=== PATIENT | female | born 1995 | race Caucasian/White ===

== ENCOUNTER 2019-06-18 11:52 | Outpatient (CLI) | payer MEDICAID ==
[2019-06-18 17:40] LABS: BASOPHILS % (AUTO) 0.4 %; EOSINOPHILS # (AUTO) 0.2 10^3/uL (0.0-0.7); EOSINOPHILS % (AUTO) 2.8 %; HGB - HEMOGLOBIN 14.5 g/dL (12.0-16.0); LYMPHOCYTES # (AUTO) 1.7 10^3/uL (1.5-3.5); LYMPHOCYTES % (AUTO) 22.5 %; MEAN CORPUSCULAR HEMOGLOBIN 30.6 pg (27.0-31.0); MEAN CORPUSCULAR HGB CONC 32.9 g/dL (32.0-36.0); MEAN PLATELET VOLUME 12.1 fL (7.9-10.8); MONOCYTES # (AUTO) 0.5 10^3/uL (0.0-1.0); MONOCYTES % (AUTO) 6.3 %; NEUTROPHILS # (AUTO) 5.1 10^3/uL (1.5-6.6); NEUTROPHILS % (AUTO) 67.7 %; PLT - PLATELET COUNT 224 10^3/uL (130-450); RED BLOOD COUNT 4.74 10^6/uL (4.20-5.40); RED CELL DISTRIBUTION WIDTH 11.9 % (12.0-15.0); WHITE BLOOD COUNT 7.6 x10^3/uL (4.8-10.8)
[2019-06-18 18:02] LABS: ALBUMIN 4.5 g/dL (3.2-5.5); ALBUMIN/GLOBULIN RATIO 1.4 (1.0-2.2); BILIRUBIN,TOTAL 0.8 mg/dL (0.2-1.0); CALCIUM 9.3 mg/dL (8.5-10.3); CREATININE 0.9 mg/dL (0.4-1.0); TOTAL PROTEIN 7.7 g/dL (6.7-8.2)
[2019-06-18 18:13] LABS: FREE T3 3.26 pg/mL (2.5-3.9); FREE T4 (FREE THYROXINE) 0.77 ng/dL (0.58-1.64)
[2019-06-18 18:18] LABS: FERRITIN 25.3 ng/mL (11.0-306.8)
== END 2019-06-18 23:59 | disposition home or self-care (01) ==
LOC: LAB.WCP 11:52
PROVIDERS: ATTEND Nurse Practitioner
DX: K51.90 Ulcerative colitis, unspecified, without complications (principal); R23.8 Other skin changes; F41.8 Other specified anxiety disorders; Z13.228 Encounter for screening for other metabolic disorders; Z79.899 Other long term (current) drug therapy; Z86.2 Personal history of diseases of the blood and blood-forming organs and certain disorders involving the immune mechanism
CPT/HCPCS: 36415; 80053; 82728; 83540; 84439; 84443; 84466; 84481; 85025

== ENCOUNTER 2019-06-20 08:29 | Outpatient (CLI) | payer MEDICAID ==
--- NOTE | 2019-06-20 20:35 | XRAY Report ---
Reason: SCOLIOSIS Procedure Date: 06/20/2019 Accession Number: [id number] / [id number] Procedure: WCP - Spine Scoliosis Study 2-3V CPT Code: Final Report FULL RESULT: EXAM: SCOLIOSIS RADIOGRAPHY EXAM DATE: 06/20/2019 08:29 AM. CLINICAL HISTORY: SCOLIOSIS. COMPARISONS: None. TECHNIQUE: Standing view(s) of the thoracic and lumbar spine. FINDINGS: Alignment: Lumbar scoliosis to the left centered at L2-L3 disk space. Bones: Normal. No fracture, bone lesion, or congenital anomaly evident. Risser 5. Disks: Normal. Disk heights are maintained. Soft Tissues: Normal. The visualized lungs and cardiomediastinal silhouette are normal. The bowel gas pattern is normal. IMPRESSION: Mild lumbar scoliosis to the left centered at L2-L3 disk space. No degenerative changes. No spina bifida. No transitional lumbar vertebra. No malalignment. No acute displaced fracture. RADIA
== END 2019-06-20 23:59 | disposition home or self-care (01) ==
LOC: DI.WCP 08:29
PROVIDERS: ATTEND Nurse Practitioner
DX: M41.9 Scoliosis, unspecified (principal)
CPT/HCPCS: 72082

== ENCOUNTER 2019-06-20 09:07 | Outpatient (CLI) | payer MEDICAID | END 2019-06-20 23:59 | disposition home or self-care (01) | LOC: LAB.R 09:07 | PROVIDERS: ATTEND Nurse Practitioner | DX: R30.0 Dysuria (principal) | CPT/HCPCS: 87086 ==

== ENCOUNTER 2019-07-09 12:33 | Outpatient (CLI) | payer MEDICAID ==
--- NOTE | 2019-07-09 17:07 | Ultrasound Report ---
Reason: ENDOMETRIOSIS Procedure Date: 07/09/2019 Accession Number: [id number] / [id number] Procedure: US - Pelvic w/Transvaginal CPT Code: Final Report FULL RESULT: PROCEDURE: Pelvic w/Transvaginal INDICATIONS: ENDOMETRIOSIS TECHNIQUE: Real-time scanning was performed of the pelvic organs, with image documentation. Additional endovaginal scanning was necessary due to incomplete visualization of the adnexal and endometrial structures by transabdominal scanning. COMPARISON: None. FINDINGS: Transabdominal scanning: No pathologic free abdominal or pelvic fluid. Endovaginal scanning: Uterus: Uterus is normal in size at 7.2 x 4.6 x 4.6 cm. The endometrium measures 0.97 in combined thickness. There is a midline anterior subserosal fibroid measuring up to 3.0 x 2.9 x 2.1 cm. Ovaries: The right ovary measures 4.3 x 2.6 x 2.7 cm and the left ovary measures 2.7 x 1.9 x 1.4 cm. There is a small thin-walled cyst in the right ovary measuring up to 1.6 cm likely representing a follicular cyst. IMPRESSION: 1. Anterior subserosal fibroid demonstrated in the uterus. 2. No adnexal masses identified. Reviewed by: Jeffrey Lira MD on 07/09/2019 5:05 PM PDT Approved by: Jeffrey Lira MD on 07/09/2019 5:05 PM PDT Station ID: [id number]
== END 2019-07-09 12:34 | disposition home or self-care (01) ==
LOC: DI 12:33
PROVIDERS: ATTEND Nurse Practitioner
DX: D25.2 Subserosal leiomyoma of uterus (principal)
CPT/HCPCS: 76830; 76856

== ENCOUNTER 2019-09-29 18:12 | Emergency (ER) | payer MEDICAID ==
--- NOTE | 2019-09-29 18:19 | ED Physician Documentation ---
PD HPI UPPER EXT INJURY - Stated complaint Stated Complaint: LT THUMB LAC - History obtained from History obtained from: Patient - History of Present Illness Location: Left (She was cutting asparagus and nicked the tip of her left thumb at home. This was just prior to arrival. Tetanus is up-to-date.) PD ED PE NORMAL - Vitals Vital signs reviewed: Yes - General General: Alert and oriented X 3, No acute distress, Other (wearing v inadequate face shield and counselled that it was not appropriate protection for covid) - Extremities Extremities: Other (4mm shallow lac on pulp of L thumb.) - Neuro Neuro: Alert and oriented X 3, Normal speech - Psych Psych: Normal mood, Normal affect Results - Vitals Vitals: Vital Signs - 24 hr 09/29/19 18:17 Temperature 37.1 C Heart Rate 77 Respiratory 18 Rate Blood Pressure 115/87 H O2 Saturation 99 Oxygen O2 Source Room air Procedures - Laceration (location) L thumb Length in cm: 0.5 Wound type: Linear, Superficial Wound Preparation: Irrigated copiously NS Skin layer closure: Dermabond Other: Tetanus UTD Complexity: Simple Departure - Departure Disposition: 01 Home, Self Care Clinical Impression: Laceration of left thumb Qualifiers: Encounter type: initial encounter Damage to nail status: without damage Foreign body presence: without foreign body Qualified Code(s): S61.012A - Laceration without foreign body of left thumb without damage to nail, initial encounter Condition: Good Record reviewed to determine appropriate education?: Yes Instructions: ED Laceration Ext Skin Glue Comments: If the glue starts to chip off early you can supplement with a little superglue. For basic wound care simply soap and water and then applying a new clean dry Band-Aid over it. Return for signs of infection including but not limited to redness, swelling, drainage, increased pain.
[2019-09-29 18:20] VITALS: BP 115/87
== END 2019-09-29 18:30 | disposition home or self-care (01) ==
LOC: ED 18:12
DX: S61.012A Laceration without foreign body of left thumb without damage to nail, initial encounter (principal); W26.0XXA Contact with knife, initial encounter; Y93.G1 Activity, food preparation and clean up; Y92.009 Unspecified place in unspecified non-institutional (private) residence as the place of occurrence of the external cause
CPT/HCPCS: 12001; 99281

== ENCOUNTER 2020-02-10 08:46 | Outpatient (CLI) | payer MEDICAID ==
[2020-02-10 09:32] LABS: HGB - HEMOGLOBIN 15.1 g/dL (12.0-16.0); MEAN CORPUSCULAR HGB CONC 33.3 g/dL (32.0-36.0); MEAN CORPUSCULAR VOLUME 89.9 fL (81.0-99.0); MEAN PLATELET VOLUME 11.4 fL (7.9-10.8); RED BLOOD COUNT 5.04 10^6/uL (4.20-5.40); RED CELL DISTRIBUTION WIDTH 11.8 % (12.0-15.0); WHITE BLOOD COUNT 5.7 x10^3/uL (4.8-10.8)
[2020-02-10 09:47] LABS: ALBUMIN 4.6 g/dL (3.2-5.5); ALBUMIN/GLOBULIN RATIO 1.6 (1.0-2.2); BILIRUBIN,TOTAL 1.1 mg/dL (0.2-1.0); CREATININE 0.8 mg/dL (0.4-1.0); TOTAL PROTEIN 7.4 g/dL (6.7-8.2)
[2020-02-10 10:10] LABS: PROLACTIN 23.59 ng/mL
[2020-02-10 10:32] LABS: FOLLICLE STIMULATING HORMONE 6.28 mIU/mL
[2020-02-10 13:22] LABS: HEMOGLOBIN A1c% 5.1 % (4.27-6.07)
[2020-02-11 05:52] LABS: ESTRADIOL 144 pg/mL; PROGESTERONE <0.5 ng/mL
== END 2020-02-10 08:47 | disposition home or self-care (01) ==
LOC: LAB 08:46
PROVIDERS: ATTEND Obstetrics & Gynecology
DX: Z13.21 Encounter for screening for nutritional disorder (principal); R53.83 Other fatigue; Z83.3 Family history of diabetes mellitus; E28.2 Polycystic ovarian syndrome
CPT/HCPCS: 36415; 80053; 82306; 82670; 82951; 83001; 83036; 84144; 84146; 84403; 84443; 85027

== ENCOUNTER 2020-02-17 18:49 | Outpatient (CLI) | payer MEDICAID ==
--- NOTE | 2020-02-18 19:51 | Ultrasound Report ---
PROCEDURE: Pelvic Limited or F/U INDICATIONS: VULVAR LESION TECHNIQUE: Real-time transabdominal scanning was performed of the pelvic region and vulva, with image documentat ion. COMPARISON: None. FINDINGS: There is a reducible, fat-containing left inguinal region hernia with the neck measuring ap proximately 5 mm in diameter. With Valsalva, this fat-containing hernia measures approximately 1.8 x 0.8 cm in size. No abnormal fluid collections or hyperemia. At the palpable area of patient concern in the region of the left pole the, there is a nonspecific av ascular isoechoic structure measuring 2.1 x 0.5 x 0.9 cm. There is no adjacent hyperemia. No abnormal fluid collection. Overlying skin appears unremarkable. IMPRESSION: 1. There is a spontaneously reducible fat-containing hernia in the left inguinal region which may rep resent an inguinal versus femoral hernia. Consider further characterization with CT. 2. Corresponding with the palpable area of concern in the region of the left vulva, there is a nonspe cific 2.1 x 0.5 x 0.9 cm isoechoic focus without associated vascularity or other suspicious features. Recommend continued clinical surveillance with repeat imaging as indicated. Reviewed by: Tino Alatorre MD on 02/18/2020 6:50 PM RUST Approved by: Tino Alatorre MD on 02/18/2020 6:50 PM RUST Station ID: [id number]
== END 2020-02-17 18:50 | disposition home or self-care (01) ==
LOC: DI 18:49
PROVIDERS: ATTEND Obstetrics & Gynecology
DX: N90.89 Other specified noninflammatory disorders of vulva and perineum (principal); K40.90 Unilateral inguinal hernia, without obstruction or gangrene, not specified as recurrent; R53.83 Other fatigue

== ENCOUNTER 2020-05-08 09:48 | Outpatient (CLI) | payer MEDICAID ==
[2020-05-08 10:40] LABS: THYROID STIMULATING HORMONE 1.62 uIU/mL (0.34-5.60)
[2020-05-08 10:41] LABS: FREE T3 3.15 pg/mL (2.5-3.9)
[2020-05-08 10:42] LABS: FREE T4 (FREE THYROXINE) 0.96 ng/dL (0.58-1.64)
[2020-05-13 03:28] LABS: THYROID PEROXIDASE ANTIBODIES 1 IU/mL (<9)
== END 2020-05-08 09:49 | disposition home or self-care (01) ==
LOC: LAB 09:48
PROVIDERS: ATTEND Obstetrics & Gynecology
DX: Z01.812 Encounter for preprocedural laboratory examination (principal); R53.83 Other fatigue; L65.9 Nonscarring hair loss, unspecified; K21.9 Gastro-esophageal reflux disease without esophagitis; K51.90 Ulcerative colitis, unspecified, without complications; Z83.49 Family history of other endocrine, nutritional and metabolic diseases; Z20.822 Contact with and (suspected) exposure to COVID-19
CPT/HCPCS: 36415; 84439; 84443; 84481; 86376; 86800

== ENCOUNTER 2020-05-08 16:54 | Outpatient (CLI) | payer MEDICAID | END 2020-05-08 16:55 | disposition home or self-care (01) | LOC: COV 16:54 | PROVIDERS: ATTEND Surgery | DX: Z01.812 Encounter for preprocedural laboratory examination (principal); K21.9 Gastro-esophageal reflux disease without esophagitis; K51.90 Ulcerative colitis, unspecified, without complications; Z20.822 Contact with and (suspected) exposure to COVID-19 ==

== ENCOUNTER 2020-05-12 08:05 | Day surgery (SDC) | payer MEDICAID ==
[2020-05-12] MEDS ORDERED: LACTATED RINGERS 1,000 ML IV ONE ×2 (08:46→10:24)
[2020-05-12 09:01] LABS: HCG UR QUAL NEGATIVE
--- NOTE | 2020-05-12 09:18 | ANESTHESIA ---
Pre-Anesthesia VS, & Labs - Diagnosis GERD, Ulcerative colitis - Procedure Colonoscopy and EGD Vital Signs: Temp Pulse Resp BP Pulse Ox 36.6 C 88 18 120/94 H 100 05/12/20 08:43 05/12/20 08:43 05/12/20 08:43 05/12/20 08:43 05/12/20 08:43 Height: 5 ft 7 in Weight (kg): 72 kg Body Mass Index: 24.8 BMI Classification: Healthy weight - NPO >8 hours - Is Patient ?: No Home Medications and Allergies Home Medications: Ambulatory Orders Citalopram [CeleXA] 20 mg PO DAILY 05/11/20 Dextroamphetamine/Amphetamine [Adderall 20 mg Tablet] 40 mg ORAL DAILY 05/11/20 clonazePAM [Clonazepam] 0.5 mg ORAL DAILY PRN 05/11/20 Citalopram [CeleXA] 20 mg PO DAILY 05/11/20 Dextroamphetamine/Amphetamine [Adderall 20 mg Tablet] 40 mg ORAL DAILY 05/11/20 clonazePAM [Clonazepam] 0.5 mg ORAL DAILY PRN 05/11/20 Allergies/Adverse Reactions: Allergies Allergy/AdvReac Type Severity Reaction Status Date / Time No Known Drug Allergies Allergy Verified 05/11/20 14:01 Anes History & Medical History - Anesthetic History Anesthesia Complications: reports: Slow wake-up - Medical History Cardiovascular: reports: None Pulmonary: reports: None Gastrointestinal: reports: GERD Urinary: reports: None Neuro: reports: Migraines Musculoskeletal: reports: None Endocrine/Autoimmune: reports: None Blood Disorders: reports: None Skin: reports: None Smoking Status: Never smoker Psychosocial: reports: Anxiety, Other (PTSD) - Surgical History General: reports: Appendectomy, Bowel surgery, Colonoscopy, EGD Gynecologic: reports: Other Exam General: Alert, Oriented x3, Cooperative, No acute distress Dental: WNL Mouth Openin Fingerbreadth Neck Mobility: Normal Mallampati classification: II Thyromental Distance: greater than 6 cm Mental/Cognitive Status: Alert/Oriented X3, Normal for patient Plan Anesthesia Type: MAC Consent for Procedure(s) Verified and Reviewed: Yes Code Status: Attempt Resuscitation ASA classification: 2-Mild systemic disease Is this case an emergency?: No
[2020-05-12] MEDS ORDERED: fentaNYL 100 MCG/2 ML VIAL ONE (09:22)
[2020-05-12] MEDS ORDERED: PROPOFOL 500 MG/50 ML 500 MG/50 ML VIAL ONE (09:22)
[2020-05-12] MEDS ORDERED: MIDAZOLAM 2 MG/2 ML VIAL ONE (09:22)
[2020-05-12] MEDS ORDERED: LIDOCAINE-MPF 2% 5 ML VIAL ONE (09:26)
[2020-05-12] MEDS ORDERED: ONDANSETRON 4 MG/2 ML VIAL ONE (10:25)
[2020-05-12] MEDS ORDERED: ONDANSETRON 4 MG/2 ML VIAL IVP PRN (10:26)
--- NOTE | 2020-05-12 10:35 | ANESTHESIA POST OP EVALUATION ---
Anesthesia Post Eval - Post Anesthesia Eval Vitals: Last Vital Signs Temp 36.2 C L 05/12/20 10:33 Pulse 59 L 05/12/20 10:33 Resp 18 05/12/20 10:33 BP 99/76 05/12/20 10:33 Pulse Ox 100 05/12/20 10:33 CV Function Including HR & BP: Stable Pain Control: Satisfactory Nausea & Vomiting: Negative Mental Status: Baseline Respiratory Status: Airway Patent Hydration Status: Satisfactory Anesthesia Complications: None
[2020-05-12] MEDS ORDERED: DEXAMETHASONE 4 MG/ML VIAL IVP ONE (10:51)
[2020-05-12] MEDS ORDERED: DEXAMETHASONE 4 MG/ML VIAL ONE (10:54)
[2020-05-12 11:10] VITALS: BP 100/71
== END 2020-05-12 08:06 | disposition home or self-care (01) ==
LOC: SDS 08:05
PROVIDERS: ATTEND Surgery
PROC: 0DB28ZX Excision of Middle Esophagus, Via Natural or Artificial Opening Endoscopic, Diagnostic (ICD-10-PCS; 2020-05-12)
PROC: 0DB48ZX Excision of Esophagogastric Junction, Via Natural or Artificial Opening Endoscopic, Diagnostic (ICD-10-PCS; 2020-05-12)
PROC: 0DBM8ZX Excision of Descending Colon, Via Natural or Artificial Opening Endoscopic, Diagnostic (ICD-10-PCS; 2020-05-12)
PROC: 0DBL8ZX Excision of Transverse Colon, Via Natural or Artificial Opening Endoscopic, Diagnostic (ICD-10-PCS; 2020-05-12)
PROC: 0DBP8ZX Excision of Rectum, Via Natural or Artificial Opening Endoscopic, Diagnostic (ICD-10-PCS; 2020-05-12)
PROC: 0DBF8ZX Excision of Right Large Intestine, Via Natural or Artificial Opening Endoscopic, Diagnostic (ICD-10-PCS; 2020-05-12)
PROC: 0DBC8ZX Excision of Ileocecal Valve, Via Natural or Artificial Opening Endoscopic, Diagnostic (ICD-10-PCS; 2020-05-12)
PROC: 0DB98ZX Excision of Duodenum, Via Natural or Artificial Opening Endoscopic, Diagnostic (ICD-10-PCS; principal; 2020-05-12 09:15)
PROC: 0DB78ZX Excision of Stomach, Pylorus, Via Natural or Artificial Opening Endoscopic, Diagnostic (ICD-10-PCS; 2020-05-12 09:15)
DX: K51.90 Ulcerative colitis, unspecified, without complications (principal); K21.9 Gastro-esophageal reflux disease without esophagitis; R19.4 Change in bowel habit; K40.90 Unilateral inguinal hernia, without obstruction or gangrene, not specified as recurrent; K30 Functional dyspepsia; K29.60 Other gastritis without bleeding; K64.8 Other hemorrhoids; K64.4 Residual hemorrhoidal skin tags; F43.10 Post-traumatic stress disorder, unspecified
CPT/HCPCS: 43239; 45380; 81025; J7120; 88305

== ENCOUNTER 2020-06-08 07:18 | Outpatient (CLI) | payer MEDICAID ==
[2020-06-08] MEDS ORDERED: IOPAMIDOL-300 100 ML VIAL ONE (07:23)
[2020-06-08] MEDS ORDERED: IOPAMIDOL-300 50 ML VIAL ONE (07:23)
[2020-06-08] MEDS ORDERED: IOPAMIDOL-300 100 ML VIAL IVP ONE (08:38)
[2020-06-08] MEDS ORDERED: IOPAMIDOL-300 50 ML VIAL PO ONE (08:39)
--- NOTE | 2020-06-08 12:12 | CT Report ---
PROCEDURE: Abdomen/Pelvis W INDICATIONS: LT INGUINAL HERNIA CONTRAST: IV CONTRAST: Isovue 300 ml: 100 PO CONTRAST: Isovue 300 ml50 TECHNIQUE: After the administration of contrast, 5 mm thick sections acquired from the diaphragms to the sym physis. 5 mm thick coronal and sagittal reformats were acquired. For radiation dose reduction, the following was used: automated exposure control, adjustment of mA and/or kV according to patient size . COMPARISON: Pelvic ultrasound 02/17/2020 FINDINGS: Image quality: Excellent. ABDOMEN: Lung bases: Lung bases are clear. Heart size is normal. Solid organs: Liver and spleen are normal in size and enhancement. Gallbladder appears normal Bili moshe system is non dilated. Pancreas enhances normally. No adrenal nodules. Kidneys demonstrate nor mal size and enhancement, without hydronephrosis. Peritoneum and bowel: Bowel loops demonstrate normal wall thickness and caliber. No free fluid or a ir. Nodes and vessels: No retroperitoneal or mesenteric adenopathy by size criteria. Aorta and inferior vena cava are normal in size. Miscellaneous: No ventral hernias. PELVIS: Genitourinary: Bladder wall thickness is normal. There is a 1.8 cm right ovarian cyst. Miscellaneous: No inguinal hernias or adenopathy. A normal or abnormal appendix could not be locate d at the right lower quadrant, but there is no secondary CT evidence of acute appendicitis. No inguin al hernia is found. Bones: No suspicious bony lesions. No vertebral body compression fractures. IMPRESSION: Normal examination, source of current symptomatology is not found. Reviewed by: Mason Nunez MD on 06/08/2020 12:11 PM PDT Approved by: Mason Nunez MD on 06/08/2020 12:11 PM PDT Station ID: [id number]
== END 2020-06-08 07:19 | disposition home or self-care (01) ==
LOC: DI 07:18
PROVIDERS: ATTEND Surgery
DX: K40.90 Unilateral inguinal hernia, without obstruction or gangrene, not specified as recurrent (principal)
CPT/HCPCS: 74177; Q9967

== ENCOUNTER 2021-10-25 02:37 | Emergency (ER) | payer OTHER ==
[2021-10-25] MEDS ORDERED: HYDROmorphone 1 MG/ML CARPUJECT ONE (03:34)
[2021-10-25] MEDS ORDERED: ONDANSETRON 4 MG/2 ML VIAL ONE (03:34)
[2021-10-25] MEDS ORDERED: KETOROLAC 15 MG/ML VIAL ONE (03:35)
--- NOTE | 2021-10-25 03:49 | ED Physician Documentation ---
PD HPI ABD PAIN - Stated complaint Stated Complaint: BACK PX, ADB PX, NAUSEA - History obtained from History obtained from: Patient - History of Present Illness Timing - onset: How many hours ago (few) Timing - duration: Hours (few) Timing - details: Abrupt onset, Still present Quality: Cramping, Aching, Pain Location: LLQ Radiation: Left flank (initially left flank then to left abd, associated with nausea.) Improved by: No: Laying still Worsened by: No: Moving, Breathing Associated symptoms: Nausea, Vomiting. No: Fever, Diarrhea, Dysuria, Loss of appetite, Vaginal bleeding Similar symptoms before: Has not had sx before Recently seen: Not recently seen Review of Systems Constitutional: denies: Fever, Chills Nose: denies: Rhinorrhea / runny nose, Congestion Throat: denies: Sore throat Respiratory: denies: Cough : reports: LMP (1 week ago), Irregular menses. denies: Dysuria, Frequency, Discharge Musculoskeletal: denies: Extremity pain Neurologic: denies: Near syncope PD PAST MEDICAL HISTORY - Past Medical History Cardiovascular: None Respiratory: None Neuro: Migraines GI: GERD - Present Medications Home Medications: Ambulatory Orders Medication Instructions Recorded Confirmed Dextroamphetamine/Amphetamine 40 mg ORAL DAILY 05/11/20 10/25/21 [Adderall 20 mg Tablet] - Allergies Allergies/Adverse Reactions: Allergies Allergy/AdvReac Type Severity Reaction Status Date / Time No Known Drug Allergies Allergy Verified 10/25/21 03:52 - Social History Smoking Status: Never smoker PD ED PE NORMAL - Vitals Vital signs reviewed: Yes - General General: Alert and oriented X 3, Well developed/nourished, Other (appears very uncomfrotable due to flank/abd pain; tearful.) - Neck Neck: Supple, no meningeal sign, No adenopathy - Cardiac Cardiac: RRR, No murmur - Respiratory Respiratory: Clear bilaterally - Abdomen Abdomen: Normal bowel sounds, Soft, Non distended, Other (tender left mid abd and some left CVA tenderness to percussion. ) - Female Female : Deferred - Rectal Rectal: Deferred - Derm Derm: Normal color, Warm and dry - Extremities Extremities: Normal ROM s pain, No edema, No calf tenderness / cord - Neuro Neuro: Alert and oriented X 3, No motor deficit, Normal speech Results - Vitals Vitals: Oxygen O2 Source Room air - Labs Labs: Laboratory Tests 10/25/21 10/25/21 10/25/21 03:30 03:30 03:30 WBC 8.4 RBC 4.30 Hgb 12.8 Hct 37.6 MCV 87.4 MCH 29.8 MCHC 34.0 RDW 11.9 L Plt Count 221 MPV 10.8 Neut # (Auto) 4.2 Lymph # (Auto) 3.0 Republic # (Auto) 0.7 Eos # (Auto) 0.4 Baso # (Auto) 0.1 Absolute Nucleated RBC 0.00 Nucleated RBC % 0.0 Sodium 137 Potassium 3.8 Chloride 101 Carbon Dioxide 28 Anion Gap 8.0 BUN 12 Creatinine 0.9 Estimated GFR (MDRD) 75 L Glucose 99 Calcium 8.7 Total Bilirubin 0.3 AST 16 ALT 14 Alkaline Phosphatase 18 L Total Protein 6.4 L Albumin 3.9 Globulin 2.5 Albumin/Globulin Ratio 1.6 Lipase 34 Urine Color YELLOW Urine Clarity CLEAR Urine pH 6.0 Ur Specific [place] 1.010 Urine Protein NEGATIVE Urine Glucose (UA) NEGATIVE Urine Ketones NEGATIVE Urine Occult Blood NEGATIVE Urine Nitrite NEGATIVE Urine Bilirubin NEGATIVE Urine Urobilinogen 0.2 (NORMAL) Ur Leukocyte Esterase NEGATIVE Ur Microscopic Review NOT INDICATED Urine Culture Comments NOT INDICATED Urine HCG, Qual 10/25/21 03:30 WBC RBC Hgb Hct MCV MCH MCHC RDW Plt Count MPV Neut # (Auto) Lymph # (Auto) Republic # (Auto) Eos # (Auto) Baso # (Auto) Absolute Nucleated RBC Nucleated RBC % Sodium Potassium Chloride Carbon Dioxide Anion Gap BUN Creatinine Estimated GFR (MDRD) Glucose Calcium Total Bilirubin AST ALT Alkaline Phosphatase Total Protein Albumin Globulin Albumin/Globulin Ratio Lipase Urine Color Urine Clarity Urine pH Ur Specific [place] Urine Protein Urine Glucose (UA) Urine Ketones Urine Occult Blood Urine Nitrite Urine Bilirubin Urine Urobilinogen Ur Leukocyte Esterase Ur Microscopic Review Urine Culture Comments Urine HCG, Qual NEGATIVE - Rads (name of study) abd/pelvic CT Radiology: Prelim report reviewed (no kidney stones, no abnormalities. Small free ffluid in cul-de-sac. ), See rad report PD MEDICAL DECISION MAKING - ED course Complexity details: reviewed results (no clear answer for the pain. Small free fluid in cul-de-sac could represent physiological or perhaps a small ruptured cyst, might account for abrupt pain back/abd. Not conclusive. ), re-evaluated patient (improved pain with IV fluids/meds. Declines further pain meds at this time. ), considered differential, d/w patient ED course: unclear the exact cause of the pain, but no more serious cause identified. Seems safe to treat pain with meds and give time for resolution or evidencing more symptoms. Departure - Departure Disposition: 01 Home, Self Care Clinical Impression: Left sided abdominal pain Condition: Stable Record reviewed to determine appropriate education?: Yes Instructions: ED Abdominal Pain Female Non-Specific Abdominal Pain Comments: Unclear the cause of your pain. The CT scan and urine test and blood test did not show a specific cause for the pain. In particular no kidney stones, bowel obstruction, localized infection. There was some small amount of free fluid in the lower abdomen that could be physiologic or related to her recent. Or can commonly come from a small ruptured cyst. The fluid in itself will absorb and not be an issue. Otherwise causes that would not be evident on the testing could be musculoskeletal pains or intestinal irritations or spasms. At this point I would anticipate improvement with some basic anti-inflammatory such as ibuprofen or naproxen along with adding Tylenol if needed for pains. We did send a small bottle of few pain pills to use every 4-6 hours if needed for worse pain. Follow-up with your primary care if not improved over the next 2 to 3 days and return sooner if worsening symptoms. Discharge Date/Time: 10/25/21 07:10
[2021-10-25 03:57] LABS: BASOPHILS # (AUTO) 0.1 10^3/uL (0.0-0.1); BASOPHILS % (AUTO) 0.7 %; BILIRUBIN,URINE NEGATIVE (NEGATIVE); EOSINOPHILS # (AUTO) 0.4 10^3/uL (0.0-0.7); EOSINOPHILS % (AUTO) 4.8 %; GLUCOSE, URINE (UA) NEGATIVE (NEGATIVE); HCT - HEMATOCRIT 37.6 % (37.0-47.0); HGB - HEMOGLOBIN 12.8 g/dL (12.0-16.0); KETONES,URINE (UA) NEGATIVE (NEGATIVE); LEUKOCYTE ESTERASE, URINE NEGATIVE (NEGATIVE); LYMPHOCYTES % (AUTO) 35.4 %; MEAN CORPUSCULAR HEMOGLOBIN 29.8 pg (27.0-31.0); MEAN CORPUSCULAR VOLUME 87.4 fL (81.0-99.0); MEAN PLATELET VOLUME 10.8 fL (7.9-10.8); MONOCYTES # (AUTO) 0.7 10^3/uL (0.0-1.0); MONOCYTES % (AUTO) 8.5 %; NEUTROPHILS # (AUTO) 4.2 10^3/uL (1.5-6.6); NEUTROPHILS % (AUTO) 50.2 %; NITRITE,URINE NEGATIVE (NEGATIVE); OCCULT BLOOD,URINE NEGATIVE (NEGATIVE); PLT - PLATELET COUNT 221 10^3/uL (130-450); PROTEIN,URINE NEGATIVE (NEGATIVE); RED CELL DISTRIBUTION WIDTH 11.9 % (12.0-15.0); UROBILINOGEN,URINE 0.2 (NORMAL) E.U./dL (NORMAL); WHITE BLOOD COUNT 8.4 x10^3/uL (4.8-10.8)
[2021-10-25 03:58] LABS: CLARITY,URINE CLEAR (CLEAR)
[2021-10-25 03:59] LABS: ALBUMIN 3.9 g/dL (3.2-5.5); ALBUMIN/GLOBULIN RATIO 1.6 (1.0-2.2); BILIRUBIN,TOTAL 0.3 mg/dL (0.2-1.0); CALCIUM 8.7 mg/dL (8.5-10.3); CREATININE 0.9 mg/dL (0.4-1.0); POTASSIUM 3.8 mmol/L (3.5-5.0); TOTAL PROTEIN 6.4 g/dL (6.7-8.2)
[2021-10-25 04:33] LABS: HCG UR QUAL NEGATIVE
[2021-10-25] MEDS ORDERED: HYDROmorphone 1 MG/ML CARPUJECT IVP STA (06:09)
[2021-10-25] MEDS ORDERED: HYDROcod/ACET 5/325 Prepack 4 PO STA (06:09)
[2021-10-25] MEDS ORDERED: ONDANSETRON 4 MG/2 ML VIAL IVP STA (06:39)
[2021-10-25] MEDS ORDERED: ONDANSETRON ODT 4 MG Prepack 2 TL PRN (06:40)
--- NOTE | 2021-10-25 08:34 | CT Report ---
PROCEDURE: Abdomen/Pelvis WO INDICATIONS: left flank to abd pain TECHNIQUE: Noncontrast 5 mm thick sections acquired from the diaphragms to the symphysis. 5 mm coronal and sagi ttal reformats were then performed. For radiation dose reduction, the following was used: automated exposure control, adjustment of mA and/or kV according to patient size. COMPARISON: None. FINDINGS: Image quality: Excellent. ABDOMEN: Lung bases: Lung bases are clear. Heart size is normal. Solid organs: Liver and spleen are normal in size. Gallbladder is normal without visible calcificat ion or wall thickening. Pancreas is normal in contours. No adrenal nodules. Kidneys are normal in size, without hydronephrosis or nephrolithiasis. Peritoneum and bowel: Unenhanced bowel loops demonstrate normal wall thickness and caliber. Surgical clips of prior appendectomy. No free fluid or air. Nodes and vessels: No retroperitoneal or mesenteric adenopathy by size criteria. Aorta and inferior vena cava are normal in caliber. Miscellaneous: No ventral hernias. PELVIS: Genitourinary: Bladder wall thickness is normal. The uterus and ovaries are within normal limits. S mall amount of physiologic right posterior adnexal fluid. Miscellaneous: No inguinal hernias or adenopathy. Bones: No suspicious bony lesions. No vertebral body compression fractures. IMPRESSION: 1. No evidence of urinary calcification or obstructive uropathy. 2. Prior appendectomy. 3. Final interpretation concordant with preliminary report. Reviewed by: Janel Granda MD on 10/25/2021 8:32 AM PDT Approved by: Janel Granda MD on 10/25/2021 8:32 AM PDT Station ID: [id number]
== END 2021-10-25 07:10 | disposition home or self-care (01) ==
LOC: ED 02:37
DX: R10.32 Left lower quadrant pain (principal)
CPT/HCPCS: 36415; 74176; 80053; 81003; 81025; 83690; 85025; 96374; 96375; 99282; 99284; J1170; 81001; 87086